=== PATIENT | female | born 1980 | race Caucasian/White ===

== ENCOUNTER → 2021-05-14 00:21 | Outpatient (CLI) | payer OTHER, SELFPAY ==
[2021-05-16 13:49] LABS: SARS-CoV-2 RNA PCR Negative
== END ==
PROVIDERS: PCP Physician Assistant; Visit Provider Surgery Plastic and Reconstructive Surgery
DX: Z01.812 Encounter for preprocedural laboratory examination (principal); Z20.822 Contact with and (suspected) exposure to COVID-19
CPT/HCPCS: C9803; U0003; U0005

== ENCOUNTER 2021-05-16 15:45 | Outpatient (CLI) | payer OTHER, SELFPAY ==
[2021-05-16 14:12] LABS: EDCOVIDSCREEN Negative (Negative)
== END 2021-05-16 15:46 | disposition home or self-care (01) ==
LOC: ANHLAB 05-22 16:35
PROVIDERS: PCP Physician Assistant; Visit Provider Surgery Plastic and Reconstructive Surgery
DX: Z01.812 Encounter for preprocedural laboratory examination (principal); Z20.822 Contact with and (suspected) exposure to COVID-19
CPT/HCPCS: 36415; 87426; C9803

== ENCOUNTER 2021-05-17 01:06 | Day surgery (SDC) | payer OTHER, SELFPAY ==
[2021-05-09 15:18] VITALS: BMI 26.6
--- NOTE | 2021-05-16 12:38 | WPDANESEPPF ---
Anes - Initial Pre Proc Eval Procedure: Operation Date: 05/17/21 07:30 Proposed Procedures p Bilateral Breast Augmentation - Abhijit Luque MD Date/Time: 05/16/21 12:38 Surgeon: Abhijit Luque MD Pre Op Diagnosis: micromastia Patient Data Age: 40 Gender: F Height: 1.7 m Weight: 77.11 kg Allergies Allergy/AdvReac Type Severity Reaction Status Date / Time No Known Allergies Allergy Verified 05/09/21 15:32 Home Medications Medication Instructions Recorded Confirmed Type docusate sodium 100 mg capsule 100 mg PO BID #21 cap 05/02/21 Rx ondansetron HCl 4 mg tablet 4 mg PO Q8H #14 tablet 05/02/21 Rx carisoprodol 350 mg tablet 350 mg PO TID PRN #21 tablet 05/03/21 05/03/21 Rx oxycodone-acetaminophen 5 mg-325 1 tablet PO Q6H PRN #15 tablet 05/03/21 05/03/21 Rx mg tablet albuterol sulfate 1 puff INHALATION PRN PRN 05/09/21 05/09/21 History Patient hx anesthesia problems: none Family hx anesthesia problems: none PMF Past Medical History Medical History (Updated 05/16/21 @ 12:39 by Kevyn Elliott MD) Anxiety Asthma Depression Overweight (BMI 25.0-29.9) Surgical History Surgical History History of abdominoplasty Social History Social History Smoking status: Never smoker Alcohol intake: never Substance use: never Living arrangements: with family Spiritual care concerns: No Anes - Eval Final PreProcedure Day of Procedure 05/16/21 12:38 Patient weight: overweight Heart: regular rate and rhythm Lungs: clear to auscultation and normal air movement Airway: Mallampati scale class II Neurological: alert and oriented Last oral intake: >/= 8 hours ASA classification: II Emergent: no Anesthetic plan: proceed Anesthesia type and monitoring: general LMA Informed Consent: The patient's anesthetic plan and its attendant risks and benefits were discussed with the patient/family/POA. Questions were solicited and answers provided to the satisfaction of the patient/family/POA.
[2021-05-17] VITALS (8 sets, daily range): BP systolic 113–137; BP diastolic 72–81; PULSE 57–105; RESP 14–18; TEMP 36.1–36.8; O2SAT 94–100
[2021-05-17] MEDS: LACTATED RINGERS 1,000 ML 30 ML IV CONT ×2 (06:55→08:32)
[2021-05-17] MEDS: SCOPOLAMINE 1.5 MG PATCH TRANSDERM (07:05)
--- NOTE | 2021-05-17 07:11 | WPDHPUPDATE1 ---
History and Physical Update Update Date/Time: 05/17/21 07:11 History and Physical has been reviewed, including an updated exam of the patient. There are NO changes in the patient's condition. Risks, benefits, and alternatives have been discussed and questions answered. Patient agrees to proceed with procedure.
--- NOTE | 2021-05-17 07:21 | W.PM.PROC2 ---
Procedure Note - Detailed Date of Procedure 05/17/21 Pre-op Diagnosis micromastia Post-op Diagnosis same Procedure Performed Bilateral augmentation mammaplasty Surgeon Abhijit Luque MD Anesthesia general Indications She has a mild ptosis. She would like to proceed with dual plane 3 augmentation mammaplasty. If she is unhappy with the degree of breast ptosis / waterfall deformity she would do a second stage mastopexy at her expense. Findings Bilateral Dane Rivera SoftTouch 445cc Silicone Implants Dual Plane 3 Right - REF# [id number] SN [id number] Left - REF [id number] SN [id number] Description of Procedure She is here today for bilateral breast augmentation. Previously and again today the risks, benefits, alternatives were discussed in extensive detail. I wanted her to be very realistic about the risks involved as well as expectations. We discussed aftercare and what to monitor for. Made sure answered all of her questions to her satisfaction today and consent was obtained. Marked in the preoperative holding area with their verification. The patient was taken to the operating room placed supine on the operating table. Anesthesia was provided by anesthesiology. A surgical time-out was taken. We cleansed the skin and 1% lidocaine and 0.25% Marcaine with epinephrine was used anesthetize as a field block. She was prepped and draped in a standard sterile fashion. Tegaderm nipple Grover were placed. A 15 blade used to make an incision along the inframammary fold. Dissection was continued at 45 degree angle until the chest wall as identified. I elevated above the pectoralis muscle in a dual plane 3 fashion. I incised the pectoralis major along its inferior border and completely released the inferior border leaving the medial border intact. I created a subpectoral pocket in the appropriate dimensions based on our preoperative planning for the implant. I then copiously irrigated with saline solution and verified a strict hemostasis. Next the use a triple antibiotic and Betadine containing solution to irrigate the pocket. I washed my gloves with the triple antibiotic and Betadine solution. We washed the implant immediately upon opening it with this solution and only opened it when we needed it. I used implant funnel and no-touch technique. The implant was introduced into the pocket using the funnel. Having verified positioning of the implant this was closed using 2-0 Vicryl followed by 3-0 Monocryl in a running subcuticular 4-0 Monocryl followed by tissue glue. Fluffs, Cooper wrap, and surgical bra were placed. Patient was awoke and taken to PACU without difficulty. All instrument sponge counts were correct at the end of the case. Estimated Blood Loss 10 Drains No Packing No Pathology none sent Complications No immediate complications Condition stable Disposition PACU
[2021-05-17] MEDS: ceFAZolin 2 GM/D5W 50 ML 2 GM/50 ML BAG IVPB (07:28)
[2021-05-17] MEDS: TRANEXAMIC ACID 1,000MG/ISO100 1,000 MG/100 ML BAG 200 MG IVPB (07:28)
[2021-05-17] MEDS: BUPIVACAINE HCL 0.25% PF 30 ML VIAL INFILTRATE (07:56)
[2021-05-17] MEDS: LIDO 1%/EPINEPHRINE 1:100,000 50 ML VIAL 30 ML INFILTRATE (07:57)
[2021-05-17] MEDS: fentaNYL CITRATE INJ (*CRX) 100 MCG/2 ML VIAL 25 MCG IV PUSH ×4 (08:52→09:03)
[2021-05-17] MEDS: HYDROmorphone HCL INJ (*CRX) 1 MG/ML SYR 0.25 MG IV PUSH ×3 (09:11→09:22)
[2021-05-17] MEDS: oxyCODONE HCL (*CRX) 5 MG TAB IR PO (09:56)
== END 2021-05-17 10:31 | disposition home or self-care (01) ==
PROVIDERS: PCP Physician Assistant; Visit Provider Surgery Plastic and Reconstructive Surgery
PROC: (CPT 19325; principal; 2021-05-17 07:30)
DX: Z41.1 Encounter for cosmetic surgery (principal); J45.909 Unspecified asthma, uncomplicated; F41.8 Other specified anxiety disorders; Z79.51 Long term (current) use of inhaled steroids
CPT/HCPCS: 19325; 36415; 87426; A9270; C9803; J0690; J1170; J1580; J2250; J3010; J7120